=== PATIENT | male | born 1995 | race African-American/Black ===

== ENCOUNTER 2018-03-02 10:09 | Emergency (ER) | payer SELFPAY ==
[~2018-03-02] VITALS: Ht 167.6 cm; Wt 64.9 kg
[2018-03-02 10:14] VITALS: BP 158/91
== END 2018-03-02 13:37 | disposition home or self-care (01) ==
LOC: EME 10:09
DX: S00.81XA Abrasion of other part of head, initial encounter (principal); H11.32 Conjunctival hemorrhage, left eye; S60.512A Abrasion of left hand, initial encounter; Y09 Assault by unspecified means; Y07.9 Unspecified perpetrator of maltreatment and neglect
CPT/HCPCS: 70450; 70486; 73130; 99281; 99285

== ENCOUNTER 2018-06-23 11:28 | Emergency (ER) | payer SELFPAY ==
[~2018-06-23] VITALS: Ht 172.7 cm; Wt 63.5 kg
[2018-06-23 11:41] VITALS: BP 132/76
== END 2018-06-23 13:26 | disposition left against medical advice (07) ==
LOC: EME 11:28
DX: S61.210A Laceration without foreign body of right index finger without damage to nail, initial encounter (principal); W26.0XXA Contact with knife, initial encounter; Z53.21 Procedure and treatment not carried out due to patient leaving prior to being seen by health care provider

== ENCOUNTER 2018-06-23 18:25 | Emergency (ER) | payer SELFPAY ==
[~2018-06-23] VITALS: Ht 170.2 cm; Wt 64.2 kg
[2018-06-23 19:50] VITALS: BP 122/78
== END 2018-06-23 19:50 | disposition home or self-care (01) ==
LOC: EME 18:25
PROC: 0HQFXZZ Repair Right Hand Skin, External Approach (ICD-10-PCS; principal; 2018-06-23)
DX: S61.210A Laceration without foreign body of right index finger without damage to nail, initial encounter (principal); W26.0XXA Contact with knife, initial encounter; Y93.G3 Activity, cooking and baking
CPT/HCPCS: 99281; 99284